=== PATIENT | female | born 1975 | race Caucasian/White ===

== ENCOUNTER → 2018-02-04 07:21 | Outpatient (CLI) | payer BC, SELFPAY ==
--- NOTE | 2018-02-04 07:24 | BI_ITS ---
MAMMOGRAPHY - BILATERAL SCREENING REASON FOR EXAM: Female, 42 years old. Routine annual screening examination. PERTINENT HISTORY: Grandmother with breast cancer. TECHNIQUE: Digital bilateral breast lisette (3D mammographic acquisition) in the CC and MLO projections. 2-D mediolateral oblique (MLO) and craniocaudad (CC) views of both breasts were obtained. CAD: Full Field Digital Mammography with Computer Added Detection was performed. COMPARISON: None. Baseline examination. FINDINGS: Breast Composition: The breasts are heterogeneously dense, which may obscure small masses. There are no dominant masses or suspicious calcifications. Benign-appearing right axillary lymph node. No other significant abnormalities are identified. BI/SCREENING MAMM (CAD), BILAT IMPRESSION: Negative screening mammogram. Yearly followup mammogram recommended. (A) ASSESSMENT CATEGORY: BIRADS Category 2: Benign. A letter regarding these results will be sent to the patient by the facility within 30 days. Approximately 10% of breast cancers are not detected by mammography. A normal mammogram should not delay biopsy of a clinically suspicious abnormality. [id number] Electronically Signed: Prabhu Bautista MD at 9:13 EST Tel [phone], Service support ,
--- OUTSIDE RECORDS SUMMARY | 2018-03-31 18:47 | XMS RPT_ITS ---
:1975 Author Organization [facility] Care Team Providers Name Role Phone Giacomo Gusman Attending Unavailable Adelia Pfeiffer Primary Care Unavailable Giacomo Gusman Referring Unavailable PROBLEMS PROBLEMS No Problem Records FoundPROCEDURES PROCEDURES No Procedure Records FoundRESULTS RESULTS SCREENING MAMM (CAD), Observed: 02/04/2018 Status: F Source: [place] 7:24 AM [facility] REPOSITORY [facility] Imaging Services [address] [place] [address] SCREENING MAMM (CAD), BILAT MR#: [id number] Acct: [id number] Name: MIRIANJUNE Renu Rep #: [id number] : 1975 F 42 From: Prabhu Bautista MD PCP: Adelia Pfeiffer DO Status: REG CLI Study: SCREENING MAMM (CAD), BILAT Date of Exam: 02/04/18 Exam# [id number] Ordering Dr: Giacomo Gusman MD MAMMOGRAPHY - BILATERAL SCREENING REASON FOR EXAM: Female, 42 years old. Routine annual screening examination. PERTINENT HISTORY: Grandmother with breast cancer. TECHNIQUE: Digital bilateral breast lisette (3D mammographic acquisition) in the CC and MLO projections. 2-D mediolateral oblique (MLO) and craniocaudad (CC) views of both breasts were obtained. CAD: Full Field Digital Mammography with Computer Added Detection was performed. COMPARISON: None. Baseline examination. FINDINGS: Breast Composition: The breasts are heterogeneously dense, which may obscure small masses. There are no dominant masses or suspicious calcifications. Benign-appearing right axillary lymph node. No other significant abnormalities are identified. BI/SCREENING MAMM (CAD), BILAT IMPRESSION: Negative screening mammogram. Yearly followup mammogram recommended. (A) ASSESSMENT CATEGORY: BIRADS Category 2: Benign. A letter regarding these results will be sent to the patient by the facility within 30 days. Approximately 10% of breast cancers are not detected by mammography. A normal mammogram should not delay biopsy of a clinically suspicious abnormality. [id number] Electronically Signed: Prabhu Bautista MD at 9:13 EST Tel [phone], Service support , CC: Giacomo Gusman MD; Adelia Pfeiffer DO Thread Drawer: Signed ALLERGIES ALLERGIES DATE TYPE / CODE NAME / CODE REACTION SEVERITY SOURCE 11/22/2016 Drug nut - Unknown Unknown [facility] Allergy/4160 unspecified/[place] [id number](SNOMED [id number](RXNOR Repository CT) M) 11/19/2016 Drug bee venom Swelling Unknown [facility] Allergy/4160 protein ([facility] 34128(SNOMED bee)/[id number] Repository CT) 5(RXNORM) ENCOUNTERS ENCOUNTERS ADMIT/DISCHARGE ACCOUNT ADMITTING ENCOUNTER LOCATION SOURCE NUMBER CLASS 02/04/2018 [id number] Ambulatory [place] [facility] ing:OPBI Repository PAYERS PAYERS ENCOUNTER GUARANTOR PAYER SUBSCRIBER SOURCE 02/04/2018 RANDELL Abdul Primary RANDELL Abdul [place] [id number] Insurance:ANTHEMPolic TOBIASDOB[facility] [place]: [id number] [id number] Repository [address]Fje: [phone] [id number] Date:[id number] [phone] () [address], [place] [address]IR: 02/04/2018 Secondary NOT GIVENUNK [place] Insurance:SELF PAY [facility] Number: Effective Repository Date:2017-12-22
== END ==
PROVIDERS: Family Provider Family Medicine; PCP Family Medicine; Referring Provider Obstetrics & Gynecology; Visit Provider Obstetrics & Gynecology
DX: Z12.31 Encounter for screening mammogram for malignant neoplasm of breast (principal)
CPT/HCPCS: 77063; 77067

== ENCOUNTER → 2019-02-05 07:48 | Outpatient (CLI) | payer BC, SELFPAY ==
--- NOTE | 2019-02-05 07:51 | BI_ITS ---
MAMMOGRAPHY - BILATERAL SCREENING REASON FOR EXAM: Female, 43 years old. Routine annual screening examination. PERTINENT HISTORY: Grandmother with breast cancer. TECHNIQUE: Digital bilateral breast brijesh (3D mammographic acquisition) in the CC and MLO projections. 2-D mediolateral oblique (MLO) and craniocaudad (CC) views of both breasts were obtained. CAD: Full Field Digital Mammography with Computer Added Detection was performed. COMPARISON: Comparison is made with prior study dated February 04, 2018. FINDINGS: Breast Composition: There are scattered areas of fibroglandular density. There are no dominant masses or suspicious calcifications. No other significant abnormalities are identified. There has been no significant change since the prior study. BI/SCREEN MAMM (CAD) W/BRIJESH BILAT IMPRESSION: Stable bilateral screening mammogram. Yearly follow-up mammogram recommended. (A) ASSESSMENT CATEGORY: BIRADS Category 1: Negative. A letter regarding these results will be sent to the patient by the facility within 30 days. Approximately 10% of breast cancers are not detected by mammography. A normal mammogram should not delay biopsy of a clinically suspicious abnormality. [id number] Electronically Signed: Prabhu Bautista, at 8:55 EST , Service support ,
== END ==
PROVIDERS: Family Provider Family Medicine; PCP Family Medicine; Referring Provider Obstetrics & Gynecology; Visit Provider Obstetrics & Gynecology
DX: Z12.31 Encounter for screening mammogram for malignant neoplasm of breast (principal)
CPT/HCPCS: 77063; 77067

== ENCOUNTER → 2020-03-03 08:43 | Outpatient (CLI) | payer BC, SELFPAY ==
--- NOTE | 2020-03-03 08:45 | BI_ITS ---
MAMMOGRAPHY - BILATERAL SCREENING REASON FOR EXAM: Female, 44 years old. Routine annual screening examination. PERTINENT HISTORY: PT MAT GRANDMOTHER UNSURE WHAT AGE PT HAD FIRST CHILD AT AGE 19 NO PREV SX TECHNIQUE: Digital bilateral breast brijesh (3D mammographic acquisition) in the CC and MLO projections. 2-D mediolateral oblique (MLO) and craniocaudad (CC) views of both breasts were obtained. CAD: Full Field Digital Mammography with Computer Added Detection was performed. COMPARISON: None. FINDINGS: Breast Composition: There are scattered areas of fibroglandular density. There are no dominant masses or suspicious calcifications. No other significant abnormalities are identified. BI/SCREEN MAMM (CAD) W/BRIJESH BILAT IMPRESSION: Stable bilateral screening mammogram. Yearly follow-up mammogram recommended. (A) ASSESSMENT CATEGORY: BIRADS Category 2: Benign. A letter regarding these results will be sent to the patient by the facility within 30 days. Approximately 10% of breast cancers are not detected by mammography. A normal mammogram should not delay biopsy of a clinically suspicious abnormality. [id number] Electronically Signed: Aravind Goodwin, at 15:48 EST Tel , Service support ,
== END ==
PROVIDERS: PCP Family Medicine; Referring Provider Obstetrics & Gynecology; Visit Provider Obstetrics & Gynecology
DX: Z12.31 Encounter for screening mammogram for malignant neoplasm of breast (principal)
CPT/HCPCS: 77063; 77067

== ENCOUNTER 2021-03-24 07:14 | Outpatient (CLI) | payer BC, SELFPAY ==
--- NOTE | 2021-03-24 07:19 | BI_ITS ---
MAMMOGRAPHY - BILATERAL SCREENING REASON FOR EXAM: Female, 45 years old. Routine annual screening examination. PERTINENT HISTORY: Grandmother with breast cancer. TECHNIQUE: Digital bilateral breast brijesh (3D mammographic acquisition) in the CC and MLO projections. 2-D mediolateral oblique (MLO) and craniocaudad (CC) views of both breasts were obtained. CAD: Full Field Digital Mammography with Computer Added Detection was performed. COMPARISON: Comparison is made with prior study dated 03/03/2020 and 02/05/2019. FINDINGS: Breast Composition: There are scattered areas of fibroglandular density. There are no dominant masses or suspicious calcifications. No other significant abnormalities are identified. There has been no significant change since the prior study. BI/SCRN MAMM (CAD)W/BRIJESH BILAT IMPRESSION: Stable bilateral screening mammogram. Yearly follow-up mammogram recommended. (A) ASSESSMENT CATEGORY: BIRADS Category 1: Negative. A letter regarding these results will be sent to the patient by the facility within 30 days. Approximately 10% of breast cancers are not detected by mammography. A normal mammogram should not delay biopsy of a clinically suspicious abnormality. [id number] Electronically Signed: Prabhu Bautista MD at 8:31 EST , Service support ,
== END 2021-03-24 23:59 | disposition short-term general hospital (02) ==
LOC: OPBI 07:15
PROVIDERS: PCP Family Medicine; Referring Provider Obstetrics & Gynecology; Visit Provider Obstetrics & Gynecology
DX: Z12.31 Encounter for screening mammogram for malignant neoplasm of breast (principal)
CPT/HCPCS: 77063; 77067

== ENCOUNTER 2022-02-27 01:17 | Emergency (ER) | payer BC, SELFPAY ==
[2022-02-27 01:18] VITALS: BP 134/86; PULSE 73; RESP 18; TEMP 36.8; O2SAT 97; BMI 32.1
[2022-02-27 01:51] LABS: Absolute Lymphocyte Count 0.76 X10^3/uL (0.83-4.51); Absolute Neutrophil Count 2.2 X10^3/uL (2.0-7.7); Basophil# 0.01 X10^3/uL; Basophil% 0.3 % (0-1); Hematocrit 45.7 % (37-47); Hemoglobin 14.9 g/dL (12.0-15.0); Lymphocyte # 0.76 X10^3/ul (0.83-4.51); Lymphocyte % 22.4 % (19-41); Mean Corp Hgb Conc 32.6 g/dL (32-36); Mean Corpuscular Volume 89.1 fL (81-99); Mean Platelet Vol. 10.5 fl (6.2-12.0); Monocyte# 0.47 X10^3/uL; Monocyte% 13.9 % (0-10); NRBC Flagged by Analyzer 0 % (0-5); Neutrophil # 2.15 X10^3/uL (2.7-7.7); Neutrophil % 63.4 % (47-70); Platelet Count 154 K/mm3 (150-450); RBC Distribution Width CV 12.7 % (11.6-14.6); RBC Distribution Width SD 41.8 fl (35.1-43.9); Red Blood Count 5.13 M/mm3 (4.2-5.4); White Blood Count 3.4 K/mm3 (4.4-11.0)
[2022-02-27] MEDS: Ketorolac 30 MG/ML Syringe IV (01:53)
[2022-02-27] MEDS: 0.9% Normal Saline 1,000 ML 999 ML IV (01:53)
[2022-02-27] MEDS: Ondansetron 4 MG/2 ML Vial IV (01:54)
[2022-02-27 02:11] LABS: AST(SGOT) 27 U/L (15-37); Alanine Aminotransfer ALT/SGPT 27 U/L (13-56); Alkaline Phosphatase 49 U/L (45-117); Anion Gap 8 (5-15); BUN 13 mg/dL (7-18); BUN/Creat Ratio 14.7 RATIO (10-20); Calcium,Total 9.3 mg/dL (8.5-10.1); Chloride 107 mmol/L (98-107); Creatinine, Serum 0.89 mg/dL (0.55-1.02); EST Glomerular Filtration Rate 73 mL/min (>60); Est Glom Filt Rate - Afr Amer 89 mL/min (>60); Estimated Creatinine Clearance 66.73 ml/min; Globulin 3.9 g/dL (2.2-4.2); Glucose 91 mg/dL (74-106); Lipase 78 U/L (73-393); Magnesium 2.1 mg/dL (1.6-2.6); Protein, Total 7.9 g/dL (6.4-8.2); Sodium Level 140 mmol/L (136-145)
--- NOTE | 2022-02-27 02:16 | EX.ED.DYSGE1 ---
HPI History of Present Illness Chief Complaint: Nausea/Vomiting Narrative Narrative: Patient is a 46-year-old female with past medical history of complete hysterectomy with oophorectomy. She reports that she was diagnosed with influenza 2 days ago. She states that she began Tamiflu this afternoon and then also developed generalized abdominal discomfort with bouts of nausea and vomiting. She states she is not been able to keep food or fluid down and feels that symptoms have been steadily worsening and secondary to this comes in for evaluation. [facility] Medical History history of ears in tubes Home Medications codeine 10 mg-guaifenesin 100 mg/5 mL oral liquid (Guaifenesin AC) 5 ml PO 4X/DAY PRN PRN cough 7 days #140 mL 02/27/22 [Rx Last Taken Unknown] oseltamivir 75 mg capsule 75 mg PO BID 02/27/22 [History Last Taken Unknown] prochlorperazine maleate 10 mg tablet (Compazine) 10 mg PO TID PRN nausea and vomiting #21 tabs 02/27/22 [Rx Last Taken Unknown] Allergy/AdvReac Type Severity Reaction Status Date / Time nut - unspecified Allergy Unknown Verified 08/30/20 11:46 bee venom protein (honey bee) AdvReac Swelling Verified 08/30/20 11:46 Surgical History History of hysterectomy History of tonsillectomy and adenoidectomy Social History (Updated 02/19/17 @ 13:20 by Patito STAUFFER, PA) Smoking Status: Never smoker [facility] Constitutional Constitutional ED: Reports chills, fever(s) and subjective ENT ENT ED: Reports rhinorrhea and sore throat Cardiovascular Cardiovascular: Denies chest pain Respiratory/Chest Respiratory/Chest: Denies cough or dyspnea Gastrointestinal Gastrointestinal: Reports abdominal pain, nausea and vomiting; Denies diarrhea Genitourinary Genitourinary ED: Denies dysuria or hematuria Musculoskeletal Musculoskeletal: Reports myalgias Integumentary Denies rash Neurologic Neurologic: Reports headache(s) Hematologic/Lymphatic Hematologic/Lymphatic: Denies easy bleeding or easy bruising EXAM Physical Exam Const Vital Signs: 02/27/22 01:18 02/27/22 03:18 Temperature 98.2 F Temperature Source Oral Pulse Rate 73 60 Respiratory Rate 18 18 Blood Pressure 134/86 H Blood Pressure Mean 102 Pulse Ox 97 96 Oxygen Delivery Method Room Air Room Air Positive well nourished and well developed General Appearance ED: well developed HEENT Reports dry mucous membranes Mouth ED: Yes dry mucous membranes Mouth: dry mucous membranes Eyes PERRL and EOMs intact bilaterally General Eye ED: Negative for scleral icterus Neck supple Resp normal respiratory effort and clear to auscultation bilaterally Cardio regular rate and regular rhythm Rate: other Other Details: Radial pulses are +2-4 bilaterally are equal and symmetric GI non-distended GI Narrative: Abdomen is soft and nondistended with hyperactive bowel sounds. There is pain on palpation in the midepigastric region without voluntary guarding or rigidity. No pulsatile mass Auscultation: hyperactive bowel sounds Palpation: soft Extremity normal to inspection Neuro oriented x3 and CN's II-XII intact bilaterally Sensorium / Orientation: alert Psych Psych Narrative: Patient has a nervous/anxious affect Skin no rashes or lesions noted and skin turgor normal General Skin Exam: Negative for jaundice MDM MDM MDM Narrative Medical decision making narrative: Patient arrived to the ER afebrile and with a soft nonsurgical abdomen. She reported a recent diagnosis of influenza A and therefore I felt no need to perform repeat viral swabs. With her abdominal pain and bouts of vomiting there was concern for underlying electrolyte derangement or secondary infection so basic labs were ordered. Labs revealed no clinically significant findings. Patient was given IV hydration as well as Zofran Compazine and Robitussin-AC. After this treatment she reported feeling better and on reevaluation her abdomen remains soft and nonsurgical. Therefore I feel her symptoms are related to inflammatory process from influenza but as she does not have acute kidney injury or severe electrolyte derangement does not need placed in the hospital and is otherwise safe for discharge. Lab Data Attestation: I reviewed the patient's lab results. Labs: Laboratory Results - last 24 hr 02/27/22 02/27/22 01:44 01:44 WBC 3.4 L RBC 5.13 Hgb 14.9 Hct 45.7 MCV 89.1 MCH 29.0 MCHC 32.6 RDW Std Deviation 41.8 RDW Coeff of Julienne 12.7 Plt Count 154 MPV 10.5 Immature Gran % (Auto) 0.000 Neut % (Auto) 63.4 Lymph % (Auto) 22.4 [place] % (Auto) 13.9 H Eos % (Auto) 0.0 Baso % (Auto) 0.3 Absolute Neuts (auto) 2.2 Absolute Lymphs (auto) 0.76 L Nucleated RBC % 0 Sodium 140 Potassium 4.0 Chloride 107 Carbon Dioxide 25.0 Anion Gap 8 BUN 13 Creatinine 0.89 Estim Creat Clear Calc 66.73 Est GFR (MDRD) Af Amer 89 Est GFR (MDRD) Non-Af 73 BUN/Creatinine Ratio 14.7 Glucose 91 Calcium 9.3 Magnesium 2.1 Total Bilirubin 0.40 Direct Bilirubin 0.10 AST 27 ALT 27 Alkaline Phosphatase 49 Total Protein 7.9 Albumin 4.0 Globulin 3.9 Lipase 78 Discharge Plan Triage Chief Complaint: Nausea/Vomiting ED Provider: Geovany Nagel Dx/Rx/DC Orders Clinical Impression: Influenza, Nausea & vomiting Instructions: ED Influenza (Adult), ED Vomiting (Adult) Prescriptions: New prochlorperazine maleate [Compazine] 10 mg tablet 10 mg PO TID PRN (Reason: nausea and vomiting) Qty: 21 0RF codeine-guaifenesin [Guaifenesin AC] 10-100 mg/5 mL liquid 5 ml PO 4X/DAY PRN PRN (Reason: cough) 7 Days Qty: 140 0RF No Action oseltamivir 75 mg capsule 75 mg PO BID Primary Care Provider: Adelia Pfeiffer Referrals: Adelia Pfeiffer DO [Primary Care Provider] - Activity Restrictions/Additional Instructions: Please keep yourself well-hydrated and take the medications as directed to help control your symptoms. If you have any further concerns please return to the ER for repeat evaluation Disposition Disposition: Home, Self Care
[2022-02-27 03:18] VITALS: PULSE 60; RESP 18; O2SAT 96
[2022-02-27] MEDS: proCHLORPERazine 10 MG/2 ML Vial IV (03:47)
[2022-02-27] MEDS: guaiFENesin/Codeine 5 ML UDC 10 ML PO (04:04)
== END 2022-02-27 04:48 | disposition home or self-care (01) ==
PROVIDERS: Emergency Provider Emergency Medicine; PCP Family Medicine; Visit Provider Emergency Medicine
DX: J11.1 Influenza due to unidentified influenza virus with other respiratory manifestations (principal); R11.2 Nausea with vomiting, unspecified
CPT/HCPCS: 80048; 80076; 83690; 83735; 85025; 96374; 96375; 99282; J7030; A4216; J2405

== ENCOUNTER → 2022-04-12 | Outpatient (CLI) | payer BC, SELFPAY ==
--- NOTE | 2022-04-12 07:13 | BI_ITS ---
MAMMOGRAPHY - BILATERAL SCREENING REASON FOR EXAM: Female, 46 years old. Routine annual screening examination. PERTINENT HISTORY: Grandmother with breast cancer. TECHNIQUE: Digital bilateral breast brijesh (3D mammographic acquisition) in the CC and MLO projections. 2-D mediolateral oblique (MLO) and craniocaudad (CC) views of both breasts were obtained. CAD: Full Field Digital Mammography with Computer Added Detection was performed. COMPARISON: Comparison is made with prior examination dated 03/24/2021 and 03/03/2020. FINDINGS: Breast Composition: There are scattered areas of fibroglandular density. There are no dominant masses or suspicious calcifications. Stable mild retraction of the right areolar complex. No other significant abnormalities are identified. There has been no significant change since the prior study. BI/SCRN MAMM (CAD)W/BRIJESH BILAT IMPRESSION: Stable bilateral screening mammogram. Yearly follow-up mammogram recommended. (A) ASSESSMENT CATEGORY: BIRADS Category 2: Benign. A letter regarding these results will be sent to the patient by the facility within 30 days. Approximately 10% of breast cancers are not detected by mammography. A normal mammogram should not delay biopsy of a clinically suspicious abnormality. [id number] Electronically Signed: Prabhu Bautista MD at 12:51 EST ,
== END | disposition home or self-care (01) ==
LOC: OPBI 07:10
PROVIDERS: PCP Family Medicine; Referring Provider Obstetrics & Gynecology; Visit Provider Obstetrics & Gynecology
DX: Z12.31 Encounter for screening mammogram for malignant neoplasm of breast (principal); Z80.3 Family history of malignant neoplasm of breast
CPT/HCPCS: 77063; 77067

== ENCOUNTER → 2023-02-26 | Outpatient (CLI) | payer BC, SELFPAY ==
[2023-02-26 09:59] LABS: Absolute Lymphocyte Count 1.66 X10^3/uL (0.83-4.51); Absolute Neutrophil Count 2.6 X10^3/uL (2.0-7.7); Basophil# 0.04 X10^3/uL; Basophil% 0.8 % (0-1); Eosinophil# 0.13 X10^3/uL; Eosinophils% 2.7 % (0-5); Hemoglobin 13.7 g/dL (12.0-15.0); Lymphocyte # 1.66 X10^3/ul (0.83-4.51); Lymphocyte % 34.2 % (19-41); Mean Corp Hgb Conc 31.9 g/dL (32-36); Mean Corpuscular Hgb 27.8 pg (27.0-32.0); Mean Corpuscular Volume 87.4 fL (81-99); Monocyte# 0.45 X10^3/uL; Monocyte% 9.3 % (0-10); NRBC Flagged by Analyzer 0 % (0-5); Neutrophil # 2.56 X10^3/uL (2.7-7.7); Neutrophil % 52.8 % (47-70); Platelet Count 226 K/mm3 (150-450); RBC Distribution Width CV 13.2 % (11.6-14.6); RBC Distribution Width SD 41.9 fl (35.1-43.9); Red Blood Count 4.92 M/mm3 (4.2-5.4); White Blood Count 4.9 K/mm3 (4.4-11.0)
[2023-02-26 10:20] LABS: ALB/GLOB Ratio 0.9 RATIO (0.9-2.4); AST(SGOT) 47 U/L (15-37); Alanine Aminotransfer ALT/SGPT 60 U/L (13-56); Albumin, Serum 3.7 g/dL (3.2-5.0); Alkaline Phosphatase 88 U/L (45-117); Anion Gap 5 (5-15); BUN 21 mg/dL (7-18); BUN/Creat Ratio 22.6 RATIO (10-20); Calcium,Total 9.9 mg/dL (8.5-10.1); Chloride 110 mmol/L (98-107); Cholesterol 165 mg/dL (200); Creatinine, Serum 0.93 mg/dL (0.55-1.02); EST Glomerular Filtration Rate 69 mL/min (>60); Est Glom Filt Rate - Afr Amer 84 mL/min (>60); Globulin 4.2 g/dL (2.2-4.2); Glucose 92 mg/dL (74-106); High Density Lipoprotein 64 mg/dL; Protein, Total 7.9 g/dL (6.4-8.2); Sodium Level 140 mmol/L (136-145); Triglycerides 52 mg/dL; Very Low Density Lipoprotein 10 mg/dL (5-40)
== END | disposition home or self-care (01) ==
PROVIDERS: PCP Family Medicine; Referring Provider Family Medicine; Visit Provider Family Medicine
DX: Z00.00 Encounter for general adult medical examination without abnormal findings (principal)
CPT/HCPCS: 36415; 80053; 80061; 85025

== ENCOUNTER → 2023-05-27 | Outpatient (CLI) | payer BC, SELFPAY ==
--- NOTE | 2023-05-27 07:06 | BI_ITS ---
MAMMOGRAPHY - BILATERAL SCREENING REASON FOR EXAM: Female, 48 years old. Routine annual screening examination. PERTINENT HISTORY: Grandmother with breast cancer. TECHNIQUE: Digital bilateral breast brijesh (3D mammographic acquisition) in the CC and MLO projections. 2-D mediolateral oblique (MLO) and craniocaudad (CC) views of both breasts were obtained. CAD: Full Field Digital Mammography with Computer Added Detection was performed. COMPARISON: Comparison is made with prior study April 12, 2022 and March 24, 2021. FINDINGS: Breast Composition: There are scattered areas of fibroglandular density. There are no dominant masses or suspicious calcifications. Stable retraction of the right areolar complex. No other significant abnormalities are identified. There has been no significant change since the prior study. BI/SCRN MAMM (CAD)W/BRIJESH BILAT IMPRESSION: Stable bilateral screening mammogram. Yearly follow-up mammogram recommended. (A) ASSESSMENT CATEGORY: BIRADS Category 2: Benign. A letter regarding these results will be sent to the patient by the facility within 30 days. Approximately 10% of breast cancers are not detected by mammography. A normal mammogram should not delay biopsy of a clinically suspicious abnormality. [id number] Electronically Signed: Prabhu Bautista MD at 8:48 EDT ,
[2023-05-27 08:33] LABS: AST(SGOT) 60 U/L (15-37); Alanine Aminotransfer ALT/SGPT 48 U/L (13-56); Albumin, Serum 3.9 g/dL (3.2-5.0); Alkaline Phosphatase 63 U/L (45-117); Bilirubin, Direct 0.11 mg/dL (0.00-0.30); Globulin 3.9 g/dL (2.2-4.2); Protein, Total 7.8 g/dL (6.4-8.2)
== END | disposition home or self-care (01) ==
PROVIDERS: PCP Family Medicine; Referring Provider Family Medicine; Visit Provider Family Medicine
DX: Z12.31 Encounter for screening mammogram for malignant neoplasm of breast (principal); Z80.3 Family history of malignant neoplasm of breast
CPT/HCPCS: 36415; 77063; 77067; 80076

== ENCOUNTER → 2023-11-11 | Outpatient (CLI) | payer BC, SELFPAY ==
[2023-11-11 19:26] LABS: AST(SGOT) 28 U/L (15-37); Alanine Aminotransfer ALT/SGPT 31 U/L (13-56); Albumin, Serum 4.2 g/dL (3.2-5.0); Alkaline Phosphatase 71 U/L (45-117); Bilirubin, Direct 0.16 mg/dL (0.00-0.30); Estradiol 28.2 pg/mL; Follicle Stimulating Hormone 58.8 mIU/mL; Globulin 3.9 g/dL (2.2-4.2); Protein, Total 8.1 g/dL (6.4-8.2)
[2023-11-13 06:37] LABS: PROGESTERONE <0.1 ng/mL (.)
== END | disposition home or self-care (01) ==
LOC: MTLAB 14:45
PROVIDERS: PCP Family Medicine; Referring Provider Family Medicine; Visit Provider Family Medicine
DX: N95.1 Menopausal and female climacteric states (principal); R74.8 Abnormal levels of other serum enzymes
CPT/HCPCS: 36415; 80076; 82670; 83001; 84144

== ENCOUNTER → 2023-11-17 | Outpatient (CLI) | payer BC, SELFPAY ==
[2023-11-17 12:28] LABS: Absolute Lymphocyte Count 1.78 X10^3/uL (0.83-4.51); Absolute Neutrophil Count 2.1 X10^3/uL (2.0-7.7); Basophil# 0.04 X10^3/uL; Basophil% 0.9 % (0-1); Eosinophil# 0.14 X10^3/uL; Eosinophils% 3.1 % (0-5); Hematocrit 44.8 % (37-47); Lymphocyte # 1.78 X10^3/ul (0.83-4.51); Lymphocyte % 39.9 % (19-41); Mean Corp Hgb Conc 31.3 g/dL (32-36); Mean Corpuscular Hgb 28.2 pg (27.0-32.0); Mean Corpuscular Volume 90.3 fL (81-99); Mean Platelet Vol. 11.1 fl (6.2-12.0); Monocyte# 0.39 X10^3/uL; Monocyte% 8.7 % (0-10); NRBC Flagged by Analyzer 0 % (0-5); Neutrophil % 47.2 % (47-70); Platelet Count 239 K/mm3 (150-450); RBC Distribution Width SD 42.5 fl (35.1-43.9); Red Blood Count 4.96 M/mm3 (4.2-5.4); White Blood Count 4.5 K/mm3 (4.4-11.0)
[2023-11-17 12:44] LABS: Vitamin B12 480 pg/mL (211-911); Vitamin D,25 Hydroxy 32.2 ng/mL
[2023-11-17 12:51] LABS: Free T3 2.7 pg/mL (2.18-3.98); T4 Free Direct 1.04 ng/dL (0.76-1.46)
[2023-11-18 16:10] LABS: Thyroglobulin Antibody < 1.0 IU/mL (0.0-0.9); Thyroid Peroxidase AB < 9 IU/mL (0-34)
== END | disposition home or self-care (01) ==
LOC: BFHLAB 09:18
PROVIDERS: PCP Family Medicine; Referring Provider Family Medicine; Visit Provider Family Medicine
DX: E03.9 Hypothyroidism, unspecified (principal); E53.8 Deficiency of other specified B group vitamins; E55.9 Vitamin D deficiency, unspecified; R53.83 Other fatigue
CPT/HCPCS: 36415; 82306; 82607; 84439; 84443; 84481; 85025; 86376; 86800

== ENCOUNTER → 2024-05-28 | Outpatient (CLI) | payer BC, SELFPAY ==
--- NOTE | 2024-05-28 07:28 | BI_ITS ---
EXAM: SCRN MAMM (CAD)W/BRIJESH BILAT 05/28/2024 CLINICAL HISTORY: F, Age 49 y/o , SCREENING TECHNIQUE: Bilateral Diagnostic digital breast tomosynthesis with 2D and 3D images. Computer aided detection. COMPARISON: Prior exam(s) dated 05/27/2023 and 04/12/2022. FINDINGS: TISSUE DENSITY: The breast tissue is composed of scattered area of fibroglandular density. Bilateral Breast Mammographic Findings: A 3 mm partially obscured stable isodense mass in the superior outer aspect of the right breast is noted. A stable 3 mm partially obscured isodense mass in the superior outer aspect of the left breast is noted. BI/SCRN MAMM (CAD)W/BRIJESH BILAT IMPRESSION: Right Breast: BIRADS 2 BENIGN FINDING. Left Breast: BIRADS 2 BENIGN FINDING. OVERALL FINAL ASSESSMENT: BIRADS 2 BENIGN FINDING. RECOMMENDATION: Routine annual follow-up in 1 Year A letter with findings and recommendations will be mailed to the patient. Reading Location: [id number]
== END | disposition home or self-care (01) ==
LOC: OPBI 07:26
PROVIDERS: PCP Family Medicine; Referring Provider Family Medicine; Visit Provider Family Medicine
DX: Z12.31 Encounter for screening mammogram for malignant neoplasm of breast (principal)
CPT/HCPCS: 77063; 77067